=== PATIENT | male | born 1980 | race Caucasian/White ===

== ENCOUNTER 2020-06-07 09:22 | Outpatient (REF) | payer MEDICAID, SELFPAY ==
[2020-06-07 11:31] LABS: MANUAL DIFF FLAG NO
[2020-06-07 11:42] LABS: Basophils Percent Auto 0.5 % (0-2); Eosinophils Absolute Auto 0.2 X10*3/uL (0.0-0.4); Eosinophils Percent Auto 3.3 % (0-4); Hematocrit 44.6 % (42-52); Hemoglobin 15.2 g/dl (14.0-18.0); Imm Gran Abs Auto 0.04 X10*3/uL (0.00-0.03); Imm Gran Pct Auto 0.5 % (0.0-0.4); Lymphocytes Absolute Auto 2.3 X10*3/uL (1.2-4.9); Lymphocytes Percent Auto 30.8 % (20-40); Mean Corpuscular HGB Conc 34.1 g/dl (31.0-36.0); Mean Corpuscular Hemoglobin 27.7 pg (27.0-33.0); Mean Corpuscular Volume 81.4 fL (80-98); Mean Platelet Volume 10.7 fL (9.4-12.4); Monocytes Absolute Auto 0.5 X10*3/uL (0.1-1.2); Monocytes Percent Auto 6.4 % (2-11); Neutrophils Absolute Auto 4.3 X10*3/uL (2.0-8.3); Neutrophils Percent Auto 58.5 % (45-73); Platelet Count 211 X10*3/uL (160-400); Red Blood Count 5.48 X10*6/uL (4.60-5.80); Red Cell Distribution Width 12.6 % (11.0-16.0); White Blood Count 7.3 X10*3/uL (4.8-10.8)
[2020-06-07 12:19] LABS: Thyroid Stimulating Hormone 0.76 uIU/mL (0.32-4.0)
[2020-06-07 12:31] LABS: Alanine Aminotransferase 27 U/L (0-40); Albumin Level 4.7 g/dL (3.5-5.0); Alkaline Phosphatase 73 U/L (39-117); Anion Gap 11 (12-20); Aspartate Amino Transferase 18 U/L (5-37); Bilirubin Total 0.7 mg/dL (0.0-1.0); Blood Urea Nitrogen 15 mg/dL (9-16); Calcium 8.8 mg/dL (8.4-10.2); Carbon Dioxide 29 mmol/L (22-29); Chloride 103 mmol/L (96-108); Estimated Glomerular Filt Rate > 60; Glucose Random 92 mg/dL (60-115); Potassium 4.2 mmol/L (3.3-5.1); Sodium 139 mmol/L (135-145)
== END 2020-06-07 09:23 | disposition home or self-care (01) ==
LOC: HO.LAB 09:22
PROVIDERS: PCP Internal Medicine Geriatric Medicine; Visit Provider Physician Assistant
DX: R74.01 Elevation of levels of liver transaminase levels (principal); R10.11 Right upper quadrant pain; K59.09 Other constipation; R19.7 Diarrhea, unspecified; F31.9 Bipolar disorder, unspecified; Z79.899 Other long term (current) drug therapy; Z87.891 Personal history of nicotine dependence
CPT/HCPCS: 36415; 80053; 84443; 85025; 99212

== ENCOUNTER → 2020-07-19 09:47 | Outpatient (BNVA) | payer MEDICAID, SELFPAY | PROVIDERS: PCP Internal Medicine Geriatric Medicine; Visit Provider Physician Assistant ==

== ENCOUNTER 2020-08-07 11:53 | Outpatient (REF) | payer MEDICAID, SELFPAY ==
--- NOTE | ~2020-08-07 | XR_ITS ---
EXAMINATION: XR SHOULDER, RIGHT XR THORACIC SPINE XR CHEST CLINICAL INFORMATION: Dorsalgia, right shoulder pain, pleurisy. COMPARISON: None TECHNIQUE: Four-view right shoulder, three-view thoracic spine, PA and lateral chest. FINDINGS: Views of the right shoulder do not demonstrate any evidence of acute fracture or dislocation. No calcific tendinitis is identified. The glenohumeral joint appears unremarkable. No widening of the coracoclavicular space is seen. Small bone island is seen within the distal clavicle. Region of density consistent with medullary calcification seen within the proximal humeral shaft. No destructive bony lesion identified. PA and lateral views of the chest do not demonstrate any evidence of acute parenchymal disease, pneumothorax, or pleural effusion. No pleural thickening is appreciated. No pleural plaques are seen. Heart normal size. No evidence of pulmonary edema. There appears be an old healed left 7th rib fracture. Three-view thoracic spine study does not demonstrate any evidence of acute fracture. Disc spaces are maintained. No abnormal paraspinal line bulge is seen. There is minor spurring present within the mid thoracic spine. Pedicles are intact. XR/XR thoracic spine 2V IMPRESSION: No significant right shoulder abnormality appreciated. No acute parenchymal disease or pleural effusion identified within the chest. No significant thoracic spine abnormality appreciated.
--- NOTE | ~2020-08-07 | XR_ITS ---
EXAMINATION: XR SHOULDER, RIGHT XR THORACIC SPINE XR CHEST CLINICAL INFORMATION: Dorsalgia, right shoulder pain, pleurisy. COMPARISON: None TECHNIQUE: Four-view right shoulder, three-view thoracic spine, PA and lateral chest. FINDINGS: Views of the right shoulder do not demonstrate any evidence of acute fracture or dislocation. No calcific tendinitis is identified. The glenohumeral joint appears unremarkable. No widening of the coracoclavicular space is seen. Small bone island is seen within the distal clavicle. Region of density consistent with medullary calcification seen within the proximal humeral shaft. No destructive bony lesion identified. PA and lateral views of the chest do not demonstrate any evidence of acute parenchymal disease, pneumothorax, or pleural effusion. No pleural thickening is appreciated. No pleural plaques are seen. Heart normal size. No evidence of pulmonary edema. There appears be an old healed left 7th rib fracture. Three-view thoracic spine study does not demonstrate any evidence of acute fracture. Disc spaces are maintained. No abnormal paraspinal line bulge is seen. There is minor spurring present within the mid thoracic spine. Pedicles are intact. XR/XR chest 2V IMPRESSION: No significant right shoulder abnormality appreciated. No acute parenchymal disease or pleural effusion identified within the chest. No significant thoracic spine abnormality appreciated.
--- NOTE | ~2020-08-07 | XR_ITS ---
EXAMINATION: XR SHOULDER, RIGHT XR THORACIC SPINE XR CHEST CLINICAL INFORMATION: Dorsalgia, right shoulder pain, pleurisy. COMPARISON: None TECHNIQUE: Four-view right shoulder, three-view thoracic spine, PA and lateral chest. FINDINGS: Views of the right shoulder do not demonstrate any evidence of acute fracture or dislocation. No calcific tendinitis is identified. The glenohumeral joint appears unremarkable. No widening of the coracoclavicular space is seen. Small bone island is seen within the distal clavicle. Region of density consistent with medullary calcification seen within the proximal humeral shaft. No destructive bony lesion identified. PA and lateral views of the chest do not demonstrate any evidence of acute parenchymal disease, pneumothorax, or pleural effusion. No pleural thickening is appreciated. No pleural plaques are seen. Heart normal size. No evidence of pulmonary edema. There appears be an old healed left 7th rib fracture. Three-view thoracic spine study does not demonstrate any evidence of acute fracture. Disc spaces are maintained. No abnormal paraspinal line bulge is seen. There is minor spurring present within the mid thoracic spine. Pedicles are intact. XR/XR shoulder RT min 2V IMPRESSION: No significant right shoulder abnormality appreciated. No acute parenchymal disease or pleural effusion identified within the chest. No significant thoracic spine abnormality appreciated.
== END 2020-08-07 11:54 | disposition home or self-care (01) ==
LOC: HO.XRAY 11:53
PROVIDERS: PCP Internal Medicine Geriatric Medicine; Visit Provider Family Medicine
DX: M25.511 Pain in right shoulder (principal); R09.1 Pleurisy; M54.6 Pain in thoracic spine
CPT/HCPCS: 71046; 72070; 73030

== ENCOUNTER 2023-05-07 13:47 | Outpatient (REF) | payer MEDICAID, SELFPAY ==
[2023-05-07 16:18] LABS: Alanine Aminotransferase 19 U/L (0-40); Albumin Level 4.4 g/dL (3.5-5.0); Alkaline Phosphatase 92 U/L (39-117); Aspartate Amino Transferase 19 U/L (5-37); Bilirubin Direct 0.1 mg/dL (0.0-0.5); Bilirubin Total 0.3 mg/dL (0.0-1.0); Total Protein 7.1 g/dL (6.5-8.0)
[2023-05-08 04:03] LABS: HIV AB/AG Nonreactive (Nonreactive); HIV Num 1 0.24 S/CO (0.00-0.99); ~HepC Num1 2.78 S/CO (0.00-0.79); ~Hepatitis C Antibody Reactive (Nonreactive)
[2023-05-11 16:04] LABS: HCV Log PCR <1.18 NOT DETECTED Log IU/mL (NOT DETECTED); HepC Viral Load <15 NOT DETECTED IU/mL (NOT DETECTED)
== END 2023-05-07 13:48 | disposition home or self-care (01) ==
LOC: HO.HHCL 13:47
PROVIDERS: Visit Provider Family Medicine
DX: F11.20 Opioid dependence, uncomplicated (principal)
CPT/HCPCS: 36415; 80076; 86803; 87389; 87522

== ENCOUNTER 2023-06-26 09:48 | Outpatient (REF) | payer MEDICAID, SELFPAY ==
[2023-06-26 11:19] LABS: MANUAL DIFF FLAG NO
[2023-06-26 11:22] LABS: Basophils Percent Auto 0.7 % (0-2); Eosinophils Absolute Auto 0.3 X10*3/uL (0.0-0.4); Eosinophils Percent Auto 5.1 % (0-4); Hematocrit 44.5 % (42.0-52.0); Hemoglobin 15.4 g/dl (14.0-18.0); Imm Gran Abs Auto 0.03 X10*3/uL (0.00-0.03); Imm Gran Pct Auto 0.5 % (0.0-0.4); Lymphocytes Absolute Auto 1.7 X10*3/uL (1.2-4.9); Lymphocytes Percent Auto 28.8 % (20-40); Mean Corpuscular HGB Conc 34.6 g/dl (31.0-36.0); Mean Corpuscular Hemoglobin 28.2 pg (27.0-33.0); Mean Corpuscular Volume 81.5 fL (80.0-98.0); Mean Platelet Volume 10.7 fL (9.4-12.4); Monocytes Absolute Auto 0.4 X10*3/uL (0.1-1.2); Monocytes Percent Auto 6.5 % (2-11); Neutrophils Absolute Auto 3.4 x10*3/uL (2.0-8.3); Neutrophils Percent Auto 58.4 % (45-73); Platelet Count 190 X10*3/uL (160-400); Red Blood Count 5.46 X10*6/uL (4.60-5.80); Red Cell Distribution Width 12.9 % (11.0-16.0); White Blood Count 5.7 X10*3/uL (4.8-10.8)
[2023-06-26 11:44] LABS: C Reactive Protein < 0.10 mg/dL (< or = 0.50); Cholesterol 156 mg/dL (<200); HDL Cholesterol 40 mg/dL (>40); LDL Cholesterol Calculated 100 mg/dL (<100); Lipase 20 U/L (8-78); Triglycerides 81 mg/dL (<150)
[2023-06-26 11:58] LABS: Rheumatoid Factor < 13.0 IU/mL (<15.0)
[2023-06-26 11:59] LABS: TSH reflex Free T4 0.57 uIU/mL (0.32-4.0)
[2023-06-26 12:00] LABS: Erythrocyte Sedimentation Rate 2 MM/HR (0-15)
[2023-06-29 21:29] LABS: Lyme Abs Screen <0.90 index
[2023-07-01 15:33] LABS: Anti Nuclear Antibody Screen POSITIVE (NEGATIVE)
== END 2023-06-26 09:49 | disposition home or self-care (01) ==
LOC: HO.HHCL 09:48
PROVIDERS: Visit Provider General Practice
DX: R00.2 Palpitations (principal); K30 Functional dyspepsia; M25.59 Pain in other specified joint
CPT/HCPCS: 36415; 80061; 83690; 84443; 85025; 85652; 86038; 86039; 86140; 86431; 86617; 86618

== ENCOUNTER 2023-10-01 09:49 | Outpatient (AMB) | payer MEDICAID, SELFPAY ==
--- NOTE | 2023-10-01 10:03 | MHC.OFFVIS ---
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 He said he was in usual state of health when he suddenly felt flutter/palpitation irregular heartbeat followed by intense chest pressure and shortness of breath that lasted for less than a minute. Symptoms subsided quickly. He said he has long history of fluttering in his chest usually happening at rest but these are very infrequent. Otherwise he notices that he has had reduced exercise capacity with his legs and is convinced that he has peripheral vascular disease. He has no other cardiac symptoms. No lightheadedness, syncope. No heart failure symptoms. He has no other risk factors for obstructive coronary artery disease. [facility] Medical History Bipolar 1 disorder Surgical History Hx of wisdom tooth extraction Hx of eye surgery Family History Unknown No problems noted. Social History Household Members: Friend(s) Alcohol intake: former Current occupational status: unemployed Review of Systems Const Denies chills, Denies daytime sleepiness, Denies fatigue, Denies fever(s), Denies frequent falls, Denies poor appetite, Denies snoring, Denies stops breathing during sleep, Denies weakness, Denies weight gain and Denies weight loss Eyes Denies loss of vision ENT Denies dizziness and Denies hearing loss Card Reports chest pain, Reports claudication, Denies leg edema, Denies lightheadedness, Denies palpitations, Denies dyspnea, Denies dyspnea on exertion and Denies orthopnea Resp Denies cough, Denies excessive phlegm production, Denies dyspnea, Denies dyspnea on exertion, Denies snoring and Denies wheezing GI Reports abdominal pain, Denies hematochezia, Reports change in bowel habits, Denies nausea and Denies vomiting Denies dysuria and Denies urinary frequency Musc Denies arthralgias, Reports muscle weakness, Denies numbness and Denies other (frequent falls) Skin/Breast Denies nail changes and Denies rash Neuro Denies Abnormal speech present, Denies dizziness, Denies frequent falls, Denies loss of vision, Denies memory loss, Denies numbness and Denies weakness Psych Reports depression and Denies memory loss Endo Denies fatigue and Denies palpitations Tanvir/Lymph Reports easy bruising and Reports other (anemia) Aller/Immun Denies wheezing Physical Exam Vital Signs: Last Vital Signs Pulse 73 10/01/23 10:06 BP 134/76 10/01/23 10:06 BMI result Body Mass Index 23.4 Const General: cooperative, comfortable, no acute distress, well developed, alert, awake and Physically active Nutritional Appearance: well nourished Orientation/consciousness: patient oriented x3 Limitations: no limitations HEENT Head: Yes normocephalic and Yes atraumatic Neck Neck: Yes trachea midline, Yes supple and Yes no JVD Resp Effort & Inspection: normal respiratory effort Auscultation: clear to auscultation bilaterally Cardio Jugular venous distension: no JVD Palpation: normal PMI Rate: regular rate Rhythm: regular rhythm Heart sounds: S1 normal heart sound present, S2 normal heart sound present, no click, no gallops, no murmurs and no rubs Peripheral pulses: Peripheral pulses 2+ throughout GI Auscultation: normal bowel sounds Skin General skin exam: no rashes or lesions noted Neuro General: patient oriented x3 and no focal motor deficits Speech: No Abnormal speech present Extrem General: Yes no clubbing, cyanosis or edema Psych Speech and movement: Pressured speech present Affect: Animated affect present Attitude: cooperative Thought process: Illogical thought process present Office Procedures EKG Details: EKG shows normal sinus rhythm with normal EKG [id number], Complete Assessment & Plan Assessment & Plan (1) Atypical chest pain: Code(s): R07.89 - Other chest pain Plan: Patient with very atypical 1 episode of chest discomfort few months ago with no clinical recurrence. With activity has no significant symptoms except for he feels that he has not able to fully exercise due to issues with his legs. He is convinced that he has vascular disease. I did a full exam on his vascular tree in his excellent bounding pulses unlikely to have peripheral vascular disease. This was discussed with him. Given his episode of chest pain shortness of breath will rule out any structural heart issues including pursuing a stress test to evaluate for exercise capacity and any abnormality with exercise. Also obtain echocardiogram to evaluate for any structural heart issues. His symptoms of palpitation very infrequent and I think any form of monitoring would have a extremely low yield and were therefore avoided. Advised to call with new symptoms. Will follow up in the clinic in 4 weeks time, sooner p.r.n.. Thank you for allowing me to partake in his care Orders: Orders CA stress test Today R07.89 - Other chest pain CA echo transthoracic complete Today R07.89 - Other chest pain Coding Level of Care Code New Pt Level 3 (36476) Diagnoses Atypical chest pain R07. CPT Codes EKG - CPT: 81789-[id number], Complete ([id number])
[2023-10-01 10:06] VITALS: BP 134/76; PULSE 73; BMI 23.4
== END 2023-10-01 10:48 | disposition home or self-care (01) ==
PROVIDERS: PCP Internal Medicine Geriatric Medicine; Referring Provider Internal Medicine Geriatric Medicine; Visit Provider Internal Medicine Cardiovascular Disease
DX: R07.89 Other chest pain (principal)
CPT/HCPCS: 93010; 99203

== ENCOUNTER → 2023-10-01 09:49 | Outpatient (BNVA) | payer MEDICAID, SELFPAY | PROVIDERS: PCP Internal Medicine Geriatric Medicine; Visit Provider Internal Medicine Cardiovascular Disease | DX: R07.89 Other chest pain (principal) | CPT/HCPCS: 93005; 99202 ==

== ENCOUNTER → 2023-10-22 07:55 | Outpatient (REF) | payer MEDICAID, SELFPAY ==
--- NOTE | 2023-10-22 08:04 | CA_ITS ---
Transthoracic Echocardiogram Patient (Last, First, Middle): Dheeraj Berrios, Gender: Male Date of : 1980 Age: 42 Procedure Date: 10/22/2023 Procedure Type: Transthoracic Echocardiogram Location: OP Height: 180.34 cm Weight: 78.47 kg BSA: 1.98 m2 Heart Rate: 55 bpm BP: 128 / 64 mmHg Acupuncture Physician: JANA Referring MD: Bud Borjas MD Net Web Application Developer: Bud Borjas MD Symptoms: R07.89 - Other chest pain Study Quality: Adequate ECG Rhythm: Bradycardia Conclusions: - Normal study Findings Left Ventricle Normal left ventricular size, thickness, and systolic function. The visually estimated ejection fraction is between 60-65%. Spectral Doppler is indicative of a normal filling pattern. Right Ventricle Normal right ventricular cavity size and systolic function. Atria Both atria are normal in size. There is no evidence of interatrial shunt. Aortic Valve Normal aortic valve structure and function. There is no aortic valve stenosis. There is no aortic valve regurgitation. Mitral Valve Normal mitral valve structure and function. There is trace mitral valve regurgitation. There is no mitral valve stenosis. Pulmonic Valve The pulmonic valve is likely normal. There is trace pulmonic valve regurgitation. Tricuspid Valve Normal tricuspid valve structure. There is trace tricuspid valve regurgitation. The right ventricular systolic pressure is normal. The right ventricular systolic pressure is 25 mmHg. Normal right atrial pressure. There is no evidence of pulmonary hypertension. Great Vessels All visible segments of the aorta are normal in size. The pulmonary artery was not well visualized. Venous The inferior vena cava is normal in size and collapses greater than 50% with inspiration. Pericardium/Pleural There is no evidence of pericardial effusion. Prior Study Comparison No prior study available for comparison. Measurements 2D Linear Measurements IVSd: 0.80 0.6-0.9/0.6-1.0 cm LVIDd: 5.02 3.9-5.3/4.2-5.9 cm LVIDd Index: 2.54 2.4-3.2/2.2-3.1 cm/m2 LVIDs: 3.47 2.0-3.6 cm LVPWd: 0.71 0.7-1.1 cm LA Diam: 3.60 2.7-3.8/3.0-4.0 cm LAIDs Index: 1.82 1.5-2.3 cm/m2 LV Mass: 158.15 67-162/88-224 g LV Mass Index: 79.87 43-95/49-115 g/m2 LVOT Diam: 2.10 3.0+(-)1.3 cm 2D Systolic Function EF 4C: 61.90 >55% EF 2C: 62.40 >55% EF BiP: 62.00 >55% Mitral Valve MV Pk E: 0.78 MV PK A: 0.34 MV Decel Time: 214.00 E/A: 2.30 E'Lateral: 15.10 E'Medial: 11.20 E/E' Med: 7.00 E/E' Lat: 5.20 PHT: 63.00 MVA PHT: 3.49 Decel Fulton: 3.65 Aortic Valve AoV Pk Braxton: 1.13 AoV Pk Grad: 5.00 LILIANA: 3.46 LVOT LVOT Pk Braxton: 1.12 LVOT Mn Braxton: 0.80 LVOT VTI: 0.25 LVOT Pk Grad: 5.00 LVOT Mn Grad: 3.00 LVOT Diam: 2.10 LVOT Area: 3.46 Diastolic Function MV Pk E: 0.78 MV Pk A: 0.34 E/A: 2.30 E'Medial: 11.20 E/E' Med: 7.00 E' Laterial: 15.10 E/E' Lat: 5.20 Right Ventricle TAPSE (mm): 23.50 TVS' Braxton: 13.30 Tricuspid Valve TR Pk Braxton: 2.36 TR Pk Grad: 22.00 RA Press: 3.00 RVSP: 25.00 Great Vessels Aorta Sinus of Valsalva: 3.00 2.0-3.5 cm Ao Asc: 2.80 2.1-3.4 cm Ao Arch: 2.40 Pulmonary Valve PV Pk Braxton: 0.98 Peak PV Grad: 4.00 Updated in Other Vendor System with Status of Final Bud Borjas MD electronically signed on 10/23/2023 10:21:50 AM with status of Final
--- NOTE | 2023-10-22 08:04 | CA_ITS ---
Acquisition Time: 2023-10-22 08:43:54 Total Exercise Time: 00:13:30 Test Indications: CP Medications: SEE H Protocol: DELFINO Max HR: 173 BPM 96% of Pred: 179 BPM Max BP: 168/060 mmHG Max Work Load: 16.2 METS Exercise stress test exercise 13 min 30 sec of Delfino protocol achieving 95% MPHR, with mild SOB, with a sensationtightness on the left side of neck and chest in the last 15 sec of last stage which resolved quickly, with normotensive response to exercise, without EKG changes. Test reviewed with Dr. Isaacs. Referred By: Bud Borjas Overread By: Keisha Guerrier
== END ==
LOC: HO.CARD 07:55
PROVIDERS: Visit Provider Internal Medicine Cardiovascular Disease
DX: R07.89 Other chest pain (principal)
CPT/HCPCS: 93017; 93306

== ENCOUNTER → 2023-10-22 08:04 | Outpatient (BNV) | payer MEDICAID, SELFPAY | PROVIDERS: Visit Provider Nurse Practitioner | DX: R07.9 Chest pain, unspecified (principal); R06.02 Shortness of breath | CPT/HCPCS: 93016; 93018; 93320; 93325; 93350 ==

== ENCOUNTER 2023-12-04 14:09 | Outpatient (AMB) | payer MEDICAID, SELFPAY ==
--- NOTE | 2023-12-04 14:10 | A.OFFVIS_ITS ---
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 Accompanied by: Self / Same As Patient Allergies amoxicillin Allergy (Severe, Verified 07/19/20 09:47) Hives and itching Medication List - Last Reconciled 12/04/23 by Kristin Ring, MANUFACTURING MILLWRIGHT-C buprenorphine HCl 8 mg sublingual DAILY fluvoxamine 50 mg PO BEDTIME methylcellulose (laxative) (Citrucel) 500 mg PO BID oxcarbazepine 600 mg PO DAILY risperidone (Risperdal) 1 mg PO DAILY PRN HPI HPI f/u after testing: Details: Dheeraj is a 43-year-old male with no cardiac history who was evaluated for episode of heart palpitation and chest pressure that happened May 2023 without reoccurrence. He underwent an echocardiogram and exercise stress test and now presents for follow-up. Today he reports that he has been feeling well with no concerning symptoms. He has had no recurrent heart palpitations or chest discomfort. 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 No shortness of breath, PND, orthopnea or edema. No lightheadedness, presyncope, syncope, falls. [facility] Medical History Bipolar 1 disorder Surgical History Hx of wisdom tooth extraction Hx of eye surgery Family History Unknown No problems noted. Social History Household Members: Friend(s) Alcohol intake: former Current occupational status: unemployed Review of Systems Const All systems reviewed & are unremarkable except as noted in HPI and below Denies chills, Denies fatigue, Denies fever(s), Denies frequent falls, Denies weakness, Denies weight gain and Denies weight loss ENT Denies dizziness Card Denies chest pain, Denies leg edema, Denies lightheadedness, Denies palpitations, Denies dyspnea and Denies dyspnea on exertion Resp Denies cough, Denies dyspnea and Denies dyspnea on exertion GI Denies hematochezia Musc Denies abnormal gait, Denies muscle weakness, Denies numbness, Denies radiating pain into limb and Denies tingling Neuro Denies abnormal gait, Denies dizziness, Denies frequent falls, Denies numbness, Denies tingling and Denies weakness Endo Denies fatigue and Denies palpitations Physical Exam Vital Signs: Last Vital Signs Pulse 80 12/04/23 14:11 BP 130/60 12/04/23 14:11 BMI result Body Mass Index 23.5 Const General: cooperative, healthy appearing, comfortable and no acute distress Orientation/consciousness: patient oriented x3 Resp Effort & Inspection: normal respiratory effort Auscultation: clear to auscultation bilaterally, no crackles, no rales, no rhonchi and no wheezes Cardio Rate: regular rate Rhythm: regular rhythm Heart sounds: S1 normal heart sound present, S2 normal heart sound present, no murmurs and no rubs Neuro General: patient oriented x3 Extrem General: Yes normal to inspection, No no pedal edema and No calf tenderness Psych Appearance: grossly normal Mental Status: mental status grossly normal Speech and movement: Normal speech and movement present Assessment & Plan Assessment & Plan (1) Atypical chest pain: Code(s): R07.89 - Other chest pain Plan: Report of 1 episode of palpitation with chest discomfort occurring May 2023. He has had no recurrent episodes since that time. 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 No significant cardiac risk factors. EKG was done last visit showing sinus rhythm with no acute ST or T- wave abnormalities, normal SC, QRS and QTC intervals, rate 73. An echocardiogram was done on 10/22/2023 which showed normal study. An exercise stress test was done 10/22/2023 with exercise 13.5 minutes, no EKG changes of ischemia. Test results reviewed with him. Discussed signs and symptoms of angina. Emergency care if ever needed for recurrent symptoms. Cardiology follow-up as needed. Plan Time spent on chart review, documentation, interview and assessment Coding Level of Care Code Est Pt Level 3 (26205) Diagnoses Atypical chest pain R07.89 Time Spent (min) 22
[2023-12-04 14:11] VITALS: BP 130/60; PULSE 80; BMI 23.5
== END 2023-12-04 14:37 | disposition home or self-care (01) ==
PROVIDERS: PCP Internal Medicine Geriatric Medicine; Visit Provider Nurse Practitioner Family
DX: R07.89 Other chest pain (principal)
CPT/HCPCS: 99213

== ENCOUNTER → 2023-12-04 14:09 | Outpatient (BNVA) | payer MEDICAID, SELFPAY | PROVIDERS: PCP Internal Medicine Geriatric Medicine; Visit Provider Nurse Practitioner Family | DX: R07.89 Other chest pain (principal) | CPT/HCPCS: 99212 ==

== ENCOUNTER 2024-02-11 16:00 | Outpatient (REF) | payer MEDICAID, SELFPAY ==
--- NOTE | ~2024-02-11 | US_ITS ---
EXAMINATION: US PELVIS, LIMITED/FOLLOW UP CLINICAL INFORMATION: Left groin nodule COMPARISON: None available. TECHNIQUE: High frequency linear ultrasound transducer was used to examine the area of clinical concern FINDINGS: A normal appearing 1.3 x 0.4 x 0.8 cm lymph node is seen with a normal fatty rosemarie. An abnormal mass or lymphadenopathy is not seen. No hernias or fluid collections US/US pelvic limited IMPRESSION: Normal-appearing lymph node. Electronically signed by: Melo Naqvi MD 02/23/2024 01:46 PM EST
== END 2024-02-11 16:01 | disposition home or self-care (01) ==
LOC: HO.US 16:00
PROVIDERS: PCP Internal Medicine Geriatric Medicine; Visit Provider General Practice
DX: R19.09 Other intra-abdominal and pelvic swelling, mass and lump (principal)
CPT/HCPCS: 76857

== ENCOUNTER 2024-04-12 14:22 | Outpatient (REF) | payer MEDICAID, SELFPAY ==
[2024-04-12 16:22] LABS: MANUAL DIFF FLAG NO
[2024-04-12 16:37] LABS: Basophils Absolute Auto 0.1 X10*3/uL (0.0-0.2); Basophils Percent Auto 0.8 % (0-2); Eosinophils Absolute Auto 0.3 X10*3/uL (0.0-0.4); Eosinophils Percent Auto 3.4 % (0-4); Hematocrit 48.2 % (42.0-52.0); Hemoglobin 16.7 g/dl (14.0-18.0); Imm Gran Abs Auto 0.03 X10*3/uL (0.00-0.03); Imm Gran Pct Auto 0.3 % (0.0-0.4); Lymphocytes Absolute Auto 2.9 X10*3/uL (1.2-4.9); Lymphocytes Percent Auto 30.9 % (20-40); Mean Corpuscular HGB Conc 34.6 g/dl (31.0-36.0); Mean Corpuscular Hemoglobin 28.1 pg (27.0-33.0); Mean Corpuscular Volume 81.1 fL (80.0-98.0); Mean Platelet Volume 10.3 fL (9.4-12.4); Monocytes Absolute Auto 0.6 X10*3/uL (0.1-1.2); Monocytes Percent Auto 6.8 % (2-11); Neutrophils Absolute Auto 5.4 x10*3/uL (2.0-8.3); Neutrophils Percent Auto 57.8 % (45-73); Platelet Count 259 X10*3/uL (160-400); Red Blood Count 5.94 X10*6/uL (4.60-5.80); Red Cell Distribution Width 12.6 % (11.0-16.0); White Blood Count 9.3 X10*3/uL (4.8-10.8)
== END 2024-04-12 14:23 | disposition home or self-care (01) ==
LOC: HO.HHCL 14:22
PROVIDERS: Visit Provider Internal Medicine
DX: K62.5 Hemorrhage of anus and rectum (principal); R00.2 Palpitations
CPT/HCPCS: 36415; 84443; 85025

== ENCOUNTER 2025-01-13 10:27 | Outpatient (REF) | payer MEDICAID, SELFPAY ==
[2025-01-13 11:40] LABS: MANUAL DIFF FLAG NO
[2025-01-13 11:58] LABS: Hematocrit 42.0 % (42.0-52.0); Hemoglobin 14.3 g/dl (14.0-18.0); Imm Gran Abs Auto 0.04 X10*3/uL (0.00-0.03); Imm Gran Pct Auto 0.7 % (0.0-0.4); Lymphocytes Absolute Auto 2.0 X10*3/uL (1.2-4.9); Mean Corpuscular HGB Conc 34.0 g/dl (31.0-36.0); Mean Corpuscular Hemoglobin 27.6 pg (27.0-33.0); Mean Corpuscular Volume 81.1 fL (80.0-98.0); NRBC Abs Auto 0.000 X10*3/uL (0.0-0.012); NRBC Pct Auto 0.0 /100WBC (0.0-0.2); Platelet Count 175 X10*3/uL (160-400); Red Blood Count 5.18 X10*6/uL (4.60-5.80); White Blood Count 5.6 X10*3/uL (4.8-10.8)
[2025-01-13 12:49] LABS: Alanine Aminotransferase 27 U/L (0-40); Albumin Level 4.4 g/dL (3.5-5.0); Alkaline Phosphatase 70 U/L (39-117); Anion Gap 9 (12-20); Aspartate Amino Transferase 30 U/L (5-37); Blood Urea Nitrogen 13 mg/dL (9-16); Calcium 8.7 mg/dL (8.4-10.2); Carbon Dioxide 30 mmol/L (22-29); Chloride 105 mmol/L (96-108); Cholesterol 164 mg/dL (<200); Estimated Glomerular Filt Rate > 60; HDL Cholesterol 42 mg/dL (>40); Potassium 4.0 mmol/L (3.3-5.1); Sodium 140 mmol/L (135-145); Total Protein 6.6 g/dL (6.5-8.0); Triglycerides 75 mg/dL (<150)
[2025-01-13 13:03] LABS: Folate 12.3 ng/mL (> or = 4.0); Vitamin B12 808 pg/mL (200-900)
[2025-01-14 03:51] LABS: HIV Num 1 0.20 S/CO (0.00-0.99)
[2025-01-16 17:12] LABS: Lyme Abs Screen <0.90 index
== END 2025-01-13 10:28 | disposition home or self-care (01) ==
LOC: HO.HHCL 10:27
PROVIDERS: PCP General Practice; Visit Provider General Practice
DX: Z01.84 Encounter for antibody response examination (principal); Z11.3 Encounter for screening for infections with a predominantly sexual mode of transmission; Z11.4 Encounter for screening for human immunodeficiency virus [HIV]; F31.12 Bipolar disorder, current episode manic without psychotic features, moderate; R41.3 Other amnesia
CPT/HCPCS: 36415; 80053; 80061; 82607; 82746; 85025; 86592; 86617; 86618; 87389

== ENCOUNTER 2025-02-18 10:55 | Outpatient (REF) | payer MEDICAID, SELFPAY ==
--- NOTE | ~2025-02-18 | MR_ITS ---
EXAMINATION: MR BRAIN WITHOUT CONTRAST CLINICAL INFORMATION: Memory loss, history of head trauma. COMPARISON: None available. TECHNIQUE: MRI of the brain was obtained using routine sequences without contrast. FINDINGS: No restricted diffusion. No acute intracranial hemorrhage, mass effect, midline shift, hydrocephalus or herniation. Haskins-white matter differentiation is normal. 2 mm hyperintense T2 FLAIR signal, right cingulate gyrus, nonspecific. Posterior cranial fossa contents demonstrated no signal abnormality or mass effect. Craniocervical junction is intact with normal position of the cerebellar tonsils. Sellar/suprasellar region is normal. No signal abnormality or volume loss in the hippocampi. MR/MR head/brain wo con IMPRESSION: No acute brain abnormality. Nonspecific 2 mm hyperintense T2 FLAIR white matter signal, right cingulate gyrus. Recommend a 3-6 month follow-up for stability. Electronically signed by: Kelby Grimes MD 02/20/2025 06:48 AM LUZ
--- OUTSIDE RECORDS SUMMARY | 2025-02-18 11:05 | XMS_ITS | Clinical Summary ---
Author Organization [employer] Address [address] [facility] 7t [place] [address] Care Team Providers Care Margin Clerk Name Role Phone Sydnee Mac MD Primary Care Provider [phone] Allergies Active Allergy Reactions Criticality Noted Date Comments Penicillin V 03/04/2022 Medications fluvoxaMINE (Luvox) 50 MG tablet TAKE 2 TABLETS BY MOUTH EVERY DAY AT BEDTIME 06/05/19 23 Active OXcarbazepine (Trileptal) 150 MG tablet Take 1 tablet by mouth 2 times daily. 12/21/19 25 Active OXcarbazepine (Trileptal) 300 MG tablet Take 1 tablet by mouth 2 times daily. 12/21/19 25 Active risperiDONE (RisperDAL) 0.5 MG tablet Take 1 tablet by mouth Once per day. 12/21/19 25 Active Buprenorphine HCl-Naloxone HCl (Suboxone) 8-2 MG SL filmIndication s:Uncomplicate d opioid dependence (CMS/HCC) ([facility]) Place 1 Film under the tongue Once per day. 28 Film 1 01/27/20 25 026 Active Buprenorphine HCl-Naloxone HCl (Suboxone) 8-2 MG SL filmIndication s:Uncomplicate d opioid dependence (CMS/HCC) (HCC) Place 1 Film under the tongue Once per day. 29 Film 01/05/20 25 025 Discontinued(Re order (will not trigger notification to Pharmacy)) Active Problems Problem Noted Date Diagnosed Date BRBPR (bright red blood per rectum) 01/26/2024 Assessment & Plan (04/12/2024 2:04 PM EST): Patient referred to GI by PCP, already scheduled to have EGD and Colonoscopy but not until August Plan: CBC Mass of left inguinal region 01/26/2024 Positive BILLY (antinuclear antibody) 08/31/2023 Heart palpitations 06/28/2023 Assessment & Plan (04/12/2024 2:01 PM EST): Patient here for a sick onsite with c/o one episode of palpitations that lasted approximately 5 minutes, no chest pain or any other associated symptom. ECG today showed NSR, No acute st- t changes Plan: TSH, cardiology consult for Holter monitor Chronic upset stomach 06/28/2023 Joint pain 06/28/2023 Uncomplicated opioid dependence (CMS/HCC) 2023 Bipolar affective disorder, current episode marge c (CMS/HCC) 07/15/2017 Numbness of hand 07/15/2017 Mass of left testicle 12/14/2015 Hepatitis C antibody test positive 12/14/2015 Resolved Problems Problem Noted Date Diagnosed Date Resolved Date Opioid abuse 03/21/2016 01/26/2024 Encounters Date Type Department Care Team Description 01/24/[address] [address] Kimberlee Lopez MD Uncomplicated opioid dependence (CMS/HCC) (HCC) 01/18/2025 Results Follow-Up [address] [address] Sydnee Mac MD CBC auto differential, Lipid Panel, Standard, HIV-1/2 Antigen and Antibodies, Fourth Generation, with Reflexes, Additional followed-up results: 3 01/09/2025 3:45 PM EDT Office Visit [address] [address] Sydnee Mac MD Memory loss (Primary Dx); Bipolar affective disorder, currently manic, moderate (CMS/HCC) (HCC); Uncomplicated opioid dependence (CMS/HCC) (HCC); Dietary counseling; Exercise counseling; Underweight 01/09/2025 Travel 01/06/[address] [address] Sydnee Mac MD chart prep 01/04/2025 9:35 AM EDT Clinical Support [address] [address] Adarsh Bueno RN Uncomplicated opioid dependence (CMS/HCC) (HCC) (Primary Dx) 01/04/2025 Refill [facility] [address] [place] [address] Kimberlee Lopez MD Uncomplicated opioid dependence (CMS/HCC) (HCC) 01/04/2025 Travel 12/16/2024 Telephone [facility] [address] [place] [address] Adarsh Bueno RN OBAT Discharge from Last 3 Months Immunizations Immunization Administration Dates Next Due Influenza injectable quadriv alent IIV4 with preservative 12/14/2015 Tdap 06/09/2014 Social History Tobacco Use Types Packs/Day Years Used Date Smoking Tobacco: Former Cigarettes - 2019 Passive Smoke Exposure: Past Smokeless Tobacco: Never Tobacco Cessation:Counseling Given: Not Answered Alcohol Use Standard Drinks/Week Comments Never 0 (1 standard drink = 0.6 oz pur e alcohol) Depression Answer Date Recorded Patient Health Questionnaire-9 Score 3 06/26/2023 Patient Health Questionnaire-9 Score 3 06/26/2023 Last PHQ-9: Questionnaire Data Not on file 0 06/26/2023 Housing Stability Answer Date Recorded What is your housing situation today? Not on pedro e 01/09/[address] you li ve. Do you have problems with any of the following? None of the above 01/09/2025 Food Insecurity Answer Date Recorded Within the past 12 months, y ou worried that your food would run out before you got money to buy more: Never True 01/09/2025 Within the past 12 months,th e food you bought just didn't last and you didn't have enough money to get more: Never True Transportation Answer Date Recorded In the past 12 months, has l ack of transportation kept you from medical appts, meetings, work or from getting things needed for daily living? No 01/09/2025 Utilities Answer Date Recorded In the past 12 months, has t he electric, gas, oil or water company threatened to shut off services in your home? No 01/09/2025 Depression Answer Date Recorded Patient Health Questionnaire-2 Score 3 01/09/2025 Internet Access Answer Date Recorded Internet Access Q1 Yes 01/09/2025 Internet Access Q2 Not on file 01/09/2025 Sex and Gender Information Value Date Recorded Sex Assigned at Male 01/23/2022 7:00 PM EDT Legal Sex Male 5:36 PM EDT Gender Identity Male 01/23/2022 7:00 PM EDT Sexual Orientation Straight 01/23/2022 7: 00 PM EDT Last Filed Vital Signs Vital Sign Reading Time Taken Comments Blood Pressure 140/82 01/09/2025 3:37 PM EDT Pulse 72 01/09/2025 3:37 PM EDT Temperature 36.9 C (98.4 F) 01/09/2025 3:37 PM EDT Respiratory Rate 20 01/09/2025 3:37 PM EDT Oxygen Saturation 99% 04/12/2024 1:45 PM EST Inhaled Oxygen Concentration - - Weight 78.4 kg (172 lb 12.8 oz) 01/09/2025 3:37 PM EDT Height 180.3 cm (5' 11 ) 01/09/2025 3:37 PM EDT Body Mass Index 24.1 01/09/2025 3:37 PM EDT Plan of Treatment Upcoming Encounters Date Type Department Care Team (Late st Contact Info) Description 03/30/2025 2:00 PM EST Office Visit [facility] [address] [place], [place] [phone] Kimberlee Lopez MD [address] [place] [address] Health Maintenance Due Date Last Done Comments Disability Screening 1981 Family Planning (PISQ) 1996 HPV Vaccines (1 - Male 3-dose series) 1996 Hepatitis B Vaccines (1 of 3 - 19+ 3-dose series) 2000 Dental X-Ray: Full Mouth 08/05/2023 08/03/2020, 07/21 DTaP/Tdap/Td Vaccines (2 - Td or Tdap) 06/09/2024 06/09/2014 SDOH Screening 06/25/2024 06/26/2023 Dental Oral Exam 07/08/2024 01/07/2024, 07/2022, 05/09/2022, Additional history exists Dental Prophylaxis 07/08/2024 01/07/2024, 0 06/18/2023, 11/25/2022, Additional history exists COVID-19 Vaccine ( season) 2024 01/01/2021, 12/04/2020 Influenza Vaccine (#1) 2024 12/14/2015 Dental X-Ray: Bitewings 01/07/2025 01/07/20, 11/25/2022, 11/04/2021, Additional history exists Alcohol/Substance Use Screening 01/09/2026 01/09/2025 Depression Screening 01/09/2026 01/09/2025, 06/26/19 Tobacco Screening 01/09/2026 01/09/2025 Lipid Panel 01/13/2030 01/13/2025, 06/26/2023 Zoster Vaccines (1 of 2) 11/08/2031 RSV Patients and Patients Aged 60 years or older (1 - 1-dose 75+ series) 2056 Hepatitis C Screening Completed 05/07/2023, 024 HIV Screening Completed 01/13/2025, 05/07/2023 HIB Vaccines Aged Out No longer eligi ble based on patient's age to complete this topic Hepatitis A Vaccines Aged Out No long er eligible based on patient's age to complete this topic IPV Vaccines Aged Out No longer eligi ble based on patient's age to complete this topic Meningococcal B Vaccine Aged Out No l onger eligible based on patient's age to complete this topic Meningococcal Vaccine Aged Out No ewa amy eligible based on patient's age to complete this topic Pneumococcal Vaccine: Pediatrics (0 to 5 Years) and At-Risk Patients (6 to 49) Years Aged Out No longer eligible based on patient's age to complete this topic RSV under 20 months Aged Out No longe r eligible based on patient's age to complete this topic Rotavirus Vaccines Aged Out No longer eligible based on patient's age to complete this topic Goals Goal Patient Goal Type Associated Problems Recent Progress Patient-Stated? Author Keep your medical appointments Lifestyle No Adarsh Bueno, marketing research intern Procedure Name Priority Date/Time Associated Diagnosis Comments LYME DISEASE AB W/REFL TO BLOT (IGG, IGM) Routine 01/13/2025 10:41 AM EDT Memory loss COMPREHENSIVE METABOLIC PANEL Routine 01/13/2025 10:41 AM EDT Bipolar affective disorder, currently manic, moderate (CMS/HCC) (HCC) VITAMIN B12/FOLATE, SERUM PANEL Routine 01/13/2025 10:41 AM EDT Bipolar affective disorder, currently manic, moderate (CMS/HCC) (HCC) HIV 1/2 ANTIGEN/ANTIBODY, FOURTH GENERATION W/RFL Routine 01/13/2025 10:41 AM EDT Bipolar affective disorder, currently manic, moderate (CMS/HCC) (HCC) RPR (MONITOR) W/REFL TITER Routine 01/13/2025 10:41 AM EDT Bipolar affective disorder, currently manic, moderate (CMS/HCC) (HCC) LIPID PANEL, STANDARD Routine 01/13/2025 10:41 AM EDT Bipolar affective disorder, currently manic, moderate (CMS/HCC) (HCC) CBC WITH AUTO DIFFERENTIAL Routine 01/13/2025 10:41 AM EDT Bipolar affective disorder, currently manic, moderate (CMS/HCC) (HCC) POCT DALTON-14 URINE DRUG SCREEN Routine 01/04/2025 10:01 AM EDT Uncomplicated opioid dependence (CMS/HCC) (HCC) Full PROPHYLAXIS - ADULT Routine 01/07/2024 9:20 AM EDT BITEWINGS - 4 RADIOGRAPHIC IMAGES Routine 01/07/2024 9:20 AM EDT PERIODIC ORAL EVALUATION - ESTABLISHED PATIENT Routine 01/07/2024 9:20 AM EDT HEPATITIS C AB W/REFL TO HCV RNA, QN, PCR Routine 05/07/2023 1:51 PM EST INTRAORAL - COMPLETE SERIES OF RADIOGRAPHIC IMAGES Routine 08/03/2020 12:00 AM EDT from Last 3 Months or Most Recently Relevant to Health Maintenance Results * Vitamin B12/Folate, Serum Panel (01/13/2025 10:41 AM EDT) Pathologist [facility] Vitamin B12 808 200 - 900 pg/mL [facility] Comment:NORMAL 200-900 PG/ML INDETERMINATE 160-199 PG/ML DEFICIENT < 160 PG/ML Folate 12.3 > or = 4.0 ng/mL [facility] Comment:Reference Values:> o r = 4.0 ng/mL< 4.0 ng/mL suggests folate deficiency Methotrexate, aminopterin and folinic acid(leucovorin) are chemotherapeutic agents whose molecularstructures are similar to folate; therefore, the Architectfolate assay cannot be used for patients using these drugs. Blood Venous blood specimen / Unknown 01/13/2025 10:41 AM EDT 01/13/2025 11:36 AM EDT us Sydnee Mac MD LAB BLOOD ORDERABLES Final Res ult [facility] [address] [place] [phone] * Lyme Disease Ab with Reflex to Blot (IgG, IgM) (01/13/2025 10:41 AM EDT) [facility] Lyme Antibody Screen <0.90 index [facility] Comment:Index Interpretation ----- < 0.90 Negative 0.90-1.09 Equivocal > 1.09 PositiveAs recommended by the Food and Drug Administration(FDA), all samples with positive or equivocalresults in a Borrelia burgdorferi antibody screenwill be tested using a blot method. Positive orequivocal screening test results should not beinterpreted as truly positive until verified as suchusing a supplemental assay (e.g., B. burgdorferi blot).The screening test and/or blot for B. burgdorferiantibodies may be falsely negative in early stagesof Lyme disease, including the period when erythemamigrans is apparent.THIS TEST WAS PERFORMED AT:[facility] [place] [phone] RICHARD MD Lyme Blot TNP [facility] 01/13/2025 10:4 1 AM EDT 01/13/2025 11:36 AM EDT us Sydnee Mac MD LAB BLOOD ORDERABLES Final Res ult [facility] [address] [place] [phone] * (ABNORMAL) CBC auto differential (01/13/2025 10:41 AM EDT) White Blood Count 5.6 4.8 - 10.8 X10*3/uL [facility] Red Blood Count 5.18 4.60 - 5.80 X10*6/uL [facility] Hemoglobin 14.3 14.0 - 18.0 g/dl [facility] Hematocrit 42.0 42.0 - 52.0 % [facility] Mean Corpuscular Volume 81.1 80.0 - 98.0 fL [facility] Mean Corpuscular Hemoglobin 27.6 27.0 - 33.0 pg [facility] Mean Corpuscular HGB Conc 34.0 31.0 - 36.0 g/dl [facility] Red Cell Distribution Width 13.0 11.0 - 16.0 % [facility] Platelet Count 175 160 - 400 X10*3/uL [facility] Mean Platelet Volume 9.7 9.4 - 12.4 fL [facility] Neutrophils Percent Auto 51.5 45 - 73 % [facility] Imm Gran Pct Auto 0.7(H) 0.0 - 0.4 % [facility] Lymphocytes Percent Auto 35.6 20 - 40 % [facility] Monocytes Percent Auto 5.9 2 - 11 % [facility] Eosinophils Percent Auto 5.4(H) 0 - 4 % [facility] Basophils Percent Auto 0.9 0 - 2 % [facility] NRBC Pct Auto 0.0 0.0 - 0.2 /100WBC [facility] Neutrophils Absolute Auto 2.9 2.0 - 8.3 x10*3/uL [facility] Imm Gran Abs Auto 0.04(H) 0.00 - 0.03 X10*3/uL [facility] Lymphocytes Absolute Auto 2.0 1.2 - 4.9 X10*3/uL [facility] Monocytes Absolute Auto 0.3 0.1 - 1.2 X10*3/uL [facility] Eosinophils Absolute Auto 0.3 0.0 - 0.4 X10*3/uL [facility] Basophils Absolute Auto 0.1 0.0 - 0.2 X10*3/uL [facility] NRBC Abs Auto 0.000 0.0 - 0.012 X10*3/uL [facility] Blood Venous blood specimen / Unknown 01/13/2025 10:41 AM EDT 01/13/2025 11:36 AM EDT Sydnee Mac MD LAB BLOOD ORDERABLES Final Res ult Performing Organization Address City/[facility]/ZIP Co de Phone Number [facility] [address] [place] [phone] * RPR (Monitor) with Reflex to??Titer (01/13/2025 10:41 AM EDT) RPR (Monitor) w/Refl Titer NON-REACTI VE NON-REACT CONSTANTINE [facility] Comment:THIS TEST WAS PERFOR MED AT:[facility] [address] [phone] RICHARD MD Rapid Plasma Reagin Ab Titer TNP [facility] Blood Venous blood specimen / Unknown 01/13/2025 10:41 AM EDT 01/13/2025 11:36 AM EDT Sydnee Mac MD LAB BLOOD ORDERABLES Final Res ult Performing Organization Address [facility]/ZIP Co de Phone Number [facility] [address] [place] [phone] * HIV-1/2 Antigen and Antibodies, Fourth Generation, with Reflexes (01/13/2025 10:41 AM EDT) HIV AB/AG Nonreactive Nonreactive [facility] Comment:HIV-1 p24 Ag and/or HIV-1/HIV-2 Ab not detected.A test result that is nonreactive does not exclude thepossibility of exposure to or infection with HIV-1 and/orHIV-2. Nonreactive results in this assay for individualswith prior exposure to HIV-1 and/or HIV-2 may be due toantigen and antibody levels that are below the limit ofdetection of this assay.The [employer] HIV Ag/Ab Combo assay result andsupplemental assay results should be interpreted inconjunction with the patient's clinical presentation,history and other laboratory results. If the results areinconsistent with clinical evidence, additional testing issuggested to confirm the result. Blood Venous blood specimen / Unknown 01/13/2025 10:41 AM EDT 01/13/2025 11:36 AM EDT us Sydnee Mac MD LAB BLOOD ORDERABLES Final Res ult [facility] [address] [place] [phone] * (ABNORMAL) Lipid Panel, Standard (01/13/2025 10:41 AM EDT) Triglycerides 75 <150 mg/dL [facility] Comment:Desirable Triglyceri de: less than 150 mg/dLBorderline High Triglyceride 150-199 mg/dLHigh Triglyceride: 200-499 mg/dLVery High Triglyceride: greater than or equal to 5OO mg/dL Cholesterol 164 <200 mg/dL [facility] Comment:Desirable Cholestero l: less than 200 mg/dLBorderline High Cholesterol: 200-239 mg/dLHigh Cholesterol: greater than 239 mg/dL LDL Cholesterol Calculated 107(H) <100 mg/dL [facility] Comment:Desirable LDL: less than 100 mg/dLNear Optimal/Above Optimal LDL: 110- 129 mg/dLBorderline High LDL: 130-159 mg/dLHigh LDL: 160-189 mg/dLVery High LDL: greater than or equal to 190 mg/dL HDL Cholesterol 42 >40 mg/dL [facility] Comment:Desirable HDL: great er than 40 mg/dL Note: This HDL assay may give artificially low results in patients with liver disease. Blood Venous blood specimen / Unknown 01/13/2025 10:41 AM EDT 01/13/2025 11:36 AM EDT us Sydnee Mac MD LAB BLOOD ORDERABLES Final Res ult [facility] [address] [place], [place] [phone] * (ABNORMAL) Comprehensive Metabolic Panel (01/13/2025 10:41 AM EDT) Sodium 140 135 - 145 mmol/L [facility] Potassium 4.0 3.3 - 5.1 mmol/L [facility] Chloride 105 96 - 108 mmol/L [facility] Carbon Dioxide 30(H) 22 - 29 mmol/L [facility] Anion Gap 9(L) 12 - 20 [facility] Urea Nitrogen (BUN) 13 9 - 16 mg/dL [facility] Creatinine, Serum 0.72 0.5 - 1.4 mg/dL [facility] Estimated Glomerular Filt Rate >60 [facility] Comment:Chronic Kidney Disea se: Estimated GFR < 60 mL/min/[id number] Kidney Disease: Estimated GFR < 15 mL/min/1.73m2 Glucose 91 60 - 115 mg/dL [facility] Calcium 8.7 8.4 - 10.2 mg/dL [facility] Bilirubin, Total 0.4 0.0 - 1.0 mg/dL [facility] Aspartate Amino Transferase 30 5 - 37 U/L [facility] Alanine Aminotransferase 27 0 - 40 U/L [facility] Total Protein 6.6 6.5 - 8.0 g/dL [facility] Albumin Level 4.4 3.5 - 5.0 g/dL [facility] Alkaline Phosphatase 70 39 - 117 U/L [facility] Blood Venous blood specimen / Unknown 01/13/2025 10:41 AM EDT 01/13/2025 11:36 AM EDT Result [facility] Sydnee Mac MD LAB BLOOD ORDERABLES Final Res ult Performing Organization Address [facility] Co de Phone Number [facility] [address] [place] [phone] * (ABNORMAL) POCT DALTON-14 Urine Drug Screen (01/04/2025 10:01 AM EDT) THC Positive(A) Negative Cocaine Screen, Urine Negative Negative Opiate Screen, Urine Negative Negative Methamphetamine Screen Urine Negative Negative Amphetamine Screen, Urine Negative Negative Benzodiazepines Screen, Urine Negative Negative Barbiturate Screen, Urine Negative Negative Methadone Screen, Urine Negative Negative Buprenophine Screen, Urine Positive(A) Negative TCA, Urine Negative Negative MDMA Urine Negative Negative ng/mL Oxycodone Screen, Urine Negative Negative Phencyclidine (PCP), Urine Negative Negative Fentanyl, Urine Negative Negative Urine Urine specimen obtained by clean catch procedure / Unknown 01/04/2025 10:01 AM EDT Result [facility] Dwayne Paez MD POINT OF CARE TEST ENTER/EDIT ORDERABLES Final Result * (ABNORMAL) Hepatitis C Antibody with Reflex to HCV, RNA, Quantitative, Real- Time PCR (05/07/2023 1:51 PM EST) Pathologist [facility] Hepatitis C Antibody Reactive( A) Nonreactive [facility] Comment:Presumptive evidence of antibodies to HCV. 05/07/2023 1:51 PM EST 05/07/2023 3:56 PM EST Result [facility] Kimberlee Lopez MD LAB BLOOD ORDERABLES Final R esult Performing Organization Address [facility]/ZIP Co de Phone Number [facility] [address] [place] [phone] from Last 3 Months or Most Recently Relevant to Health Maintenance Insurance [facility] C3 HS FULL DENTAL-[facility] MEDICAID STAND ADULT Care Teams Margin Clerk Relationship Specialty Start Date End Date Sydnee Mac MD [address] [place] [phone] PCP - General Family Medicine 06/28/23
--- OUTSIDE RECORDS SUMMARY | 2025-02-18 11:05 | XMS_ITS | Encounter Summary ---
Author Organization [employer] Address [address] [facility] [address] [place] [address] Care Team Providers Care Metal Box Maker Name Role Phone Sydnee Mac MD Primary Care Provider [phone] Encounter Details Date Type Department Care Team (Latest Contact Info) Description 11/04/2021 Abstract [facility] CONVERSIONS Dental, Provider, DDS Social History Tobacco Use Types Packs/Day Years Used Date Smoking Tobacco: Never Assessed Sex and Gender Information Value Date Recorded Sex Assigned at Male 01/23/2022 7:00 PM EDT Legal Sex Male 5:36 PM EDT Gender Identity Male 01/23/2022 7:00 PM EDT Sexual Orientation Straight 01/23/2022 7: 00 PM EDT documented as of this encounter Plan of Treatment Upcoming Encounters Date Type Department Care Team (Late st Contact Info) Description 03/30/2025 2:00 PM EST Office Visit [facility] [address] [place] [address] Kimberlee Lopez MD [address] [place] [address] documented as of this encounter Visit Diagnoses Not on filedocumented in this encounter Care Teams Metal Box Maker Relationship Specialty Start Date End Date Sydnee Mac MD [address] [place] [address] PCP - General Family Medicine 06/28/23 documented as of this encounter
--- OUTSIDE RECORDS SUMMARY | 2025-02-18 11:05 | XMS_ITS ---
Author Name [facility] Organization Unknown Care Team Organization Name Specialty Phone Email Start Date End Da cherie [facility] 07/15/19 [facility] 07/15/2023
--- OUTSIDE RECORDS SUMMARY | 2025-02-18 11:05 | XMS_ITS | Encounter Summary ---
Author Organization [employer] Address [address] [facility] [address] [place] [address] Care Team Providers Care Gang Boss Name Role Phone Sydnee Mac MD Primary Care Provider [phone] Encounter Details Date Type Department Care Team (Latest Contact Info) Description 08/03/2020 Abstract [facility] CONVERSIONS Dental, Provider, DDS Social [...] Description 03/30/2025 2:00 PM EST Office Visit [facility] [address] [place] [address] Kimberlee Lopez MD [address] [place] [address] documented as of this encounter Visit Diagnoses Not on filedocumented in this encounter Care Teams Gang Boss Relationship Specialty Start Date End Date Sydnee Mac MD [address] [place] [address] PCP - General Family Medicine 06/28/23 documented as of this encounter
== END 2025-02-18 10:56 | disposition home or self-care (01) ==
LOC: HO.MRI 10:55
PROVIDERS: PCP General Practice; Visit Provider General Practice
DX: R41.3 Other amnesia (principal)
CPT/HCPCS: 70551

== ENCOUNTER → 2025-02-18 11:07 | Outpatient (BNV) | payer MEDICAID, SELFPAY | PROVIDERS: PCP General Practice; Visit Provider Radiology Diagnostic Radiology | DX: R41.3 Other amnesia (principal); Z87.820 Personal history of traumatic brain injury | CPT/HCPCS: 70551 ==